=== PATIENT | male | born 1970 | race Caucasian/White ===

== ENCOUNTER → 2018-05-12 | Outpatient (CLI) | payer BC ==
--- NOTE | 2018-05-12 15:03 | MR ---
EXAMINATION TYPE: MR lumbar spine wo con DATE OF EXAM: 05/12/2018 COMPARISON: CT abdomen November 11, 2014 HISTORY: Lumbar region radiculopathy per order. Low back pain causing pain into right buttock since t he end right knee numbness for 4 months per patient. TECHNIQUE: Multiplanar, multisequence imaging of the lumbar spine is performed without IV contrast. FINDINGS: Sagittal images of the lumbar spine show vertebral body heights and alignment to appear sat isfactory. Multilevel disc desiccation is present there is mild disc space narrowing L4-L5 level. The re is mild to moderate disc space narrowing most prominent posteriorly L5-S1 level. Posterior disc he rniation L4-L5 level as seen on sagittal images.. The conus medullaris is normal in position and sig nal ending mid L1 level. The bone marrow signal intensity is within normal limits. Axial images show the T12-L1,, L1-L2, and L2-L3 levels all to appear within normal limits. Axial images at the L3-L4 level show mild broad disc bulge with more prominent focal left foraminal d isc protrusion measuring roughly 14 mm transversely by 4 mm AP diameter causing moderate inferior lef t-sided neural foraminal narrowing encroachment on foraminal/extra foraminal left L3 nerve on sagitta l image 2 and axial image 15. Axial images at L4-L5 level shows broad disc bulge with broad-based left paracentral disc protrusion effacing anterolateral thecal sac and left lateral recess on axial images 8 and 9. There is mild righ t-sided anterior inferior neural foraminal narrowing there is mild to moderate left-sided anterior in ferior neural foraminal narrowing. No definitive central nerve encroachment is seen which is posterio rly displaced in the spinal canal. Mild to moderate facet arthropathy bilaterally at this level is id entified. Axial images at L5-S1 level shows mild facet degenerative changes bilaterally. Some left-sided endpla te changes are present. Spinal canal is preserved. Bilateral neural foramina are patent. No suspicious retroperitoneal findings are seen. Paraspinal muscle bulk is maintained. IMPRESSION: Multilevel degenerative changes in lumbar spine as detailed above, attention to L3-L4 lev el where eccentric disc herniation effaces the L3 nerve likely accounting for patient's radiculopathy type symptoms. Additional fairly prominent disc herniation noted L4-L5 level as detailed above.
== END ==
LOC: RADMRIMAIN 14:15
PROVIDERS: ATTEND Family Medicine
DX: M51.16 Intervertebral disc disorders with radiculopathy, lumbar region (principal)
CPT/HCPCS: 72148

== ENCOUNTER → 2019-01-08 | Outpatient (CLI) | payer OTHER ==
--- NOTE | 2019-01-08 14:44 | XR ---
EXAM TYPE: LUMBAR SPINE X RAY SERIES COMPARISON: NONE HISTORY: Pain TECHNIQUE: 4 views are submitted. FINDINGS: Alignment is anatomic. The pedicles are intact. The transverse processes are intact. There is no s pondylolysis or spondylolisthesis. There is severe degenerative disc disease L4-L5 and L5-S1 with fa cet arthropathy. Mild hypertrophic changes noted anteriorly. IMPRESSION: 1. Severe degenerative disc disease lower lumbar spine with facet arthropathy correlate with MRI..
== END | disposition home or self-care (01) ==
LOC: RADXRMAIN 14:25
PROVIDERS: ATTEND Emergency Medicine
DX: M51.37 Other intervertebral disc degeneration, lumbosacral region (principal); M46.97 Unspecified inflammatory spondylopathy, lumbosacral region
CPT/HCPCS: 72100

== ENCOUNTER → 2019-07-09 | Outpatient (CLI) | payer OTHER ==
--- NOTE | 2019-07-10 14:02 | US ---
EXAMINATION TYPE: US thyroid st tissue head/neck DATE OF EXAM: 07/09/2019 COMPARISON: NONE CLINICAL HISTORY: E04.2 Nontoxic multinodular goiter. Patient states being on thyroid meds for years. Hypothyroidism. GLAND SIZE: Right Lobe: 4.4 x 1.9 x 2.0 cm Overall Parenchyma: heterogenous Left Lobe: 4.0 x 1.5 x 1.8 cm Overall Parenchyma: heterogeneous Isthmus Thickness: 0.2 cm NODULES RIGHT: # of nodules measured on right: 0 LEFT: # of nodules measured on left: 0 ISTHMUS: # of nodules measured in the isthmus: 0 Bilateral neck scanned, no evidence of lymphadenopathy. IMPRESSION: EXAMINATION TYPE: US thyroid st tissue head/neck DATE OF EXAM: 07/09/2019 COMPARISON: NONE CLINICAL HISTORY: E04.2 Nontoxic multinodular goiter. GLAND SIZE: Right lobe of the gland measures approximately 1.9 x 4.4 x 2 cm. Left lobe of the gland i s 1.5 x 4 x 1.8 cm. The gland shows a heterogeneous nodular appearance bilaterally. IMPRESSION: Findings suggestive of an underlying thyroiditis
== END | disposition home or self-care (01) ==
LOC: RADUSWWP 15:50
PROVIDERS: ATTEND Internal Medicine Endocrinology, Diabetes & Metabolism
DX: E04.2 Nontoxic multinodular goiter (principal)
CPT/HCPCS: 76536

== ENCOUNTER → 2019-08-18 | Outpatient (CLI) | payer BC | END | disposition home or self-care (01) | LOC: LABWHC1 08:56 | PROVIDERS: ATTEND Internal Medicine Endocrinology, Diabetes & Metabolism | DX: R53.83 Other fatigue (principal) | CPT/HCPCS: 36415; 82024; 82533; 84443 ==

== ENCOUNTER → 2024-10-21 | Outpatient (CLI) | payer BC ==
[2024-10-21 10:23] VITALS: BP 133/77; PULSE 68; RESP 16; TEMP 97.9
--- NOTE | 2024-10-21 11:11 | P.SLEEP ---
History of Present Illness DATE: 10/21/2024 CONSULTATION/NEW PATIENT EVALUATION HISTORY OF PRESENT ILLNESS/SLEEP-WAKE EVALUATION: 54-year-old gentleman had b een evaluated in the sleep center for possible obstructive sleep apnea hypopnea syndrome. SLEEP SCHEDULE: Usually sleep schedule from 911 PM to 4 AM 7 days a week. FALLING ASLEEP: No problems with falling asleep. DURING SLEEP: Patient snores, has witnessed episodes of stop breathing during the sleep by anesthesiologist during surgery and his . Patient wakes up from sleep once to use the restroom. No history of hypnogogical hallucinations, sleep paralysis, or cataplexy. DURING THE DAY/WAKE STATE: During the day patient has problems with memory and concentration. [place] sleepiness scale is 8. Usually patient does not take naps. PAST MEDICAL HISTORY: Hyperlipidemia, hypothyroidism. PAST SURGICAL HISTORY: Left shoulder surgery, right knee arthroscopic surgery, bilateral carpal tunnel syndrome surgical treatment. MEDICATIONS: Please see below. SOCIAL HISTORY: Please see below. FAMILY HISTORY: Please see below. REVIEW OF SYSTEMS: Snoring, awakenings from sleep. No fevers. No double vision. No recent chest pain. No shortness of breath. No abdominal pain. No bleeding episodes. No blood in urine. No seizure episodes. PHYSICAL EXAMINATION: GENERAL: A pleasant patient without any distress. VITAL SIGNS: Have been reviewed, please see below, weight 250 pounds, BMI 36.9. HEENT: PERRLA, EOMI. Evaluation of oropharynx showed tongue protrudes midline, low position of soft palate Mallampati 4. NECK: Supple. No JVD. Thyroid is not palpable. 18.5 inches in circumference. LUNGS: Clear to percussion and to auscultation. Good air exchange. No wheezing or rhonchi. HEART: S1, S2 regular. No murmurs, gallops or rubs. ABDOMEN: Soft and nontender. Bowel sounds are present. No organomegaly appreciated. EXTREMITIES: No clubbing or cyanosis. TRUST VAULT CLERK: Awake, alert, and oriented x3. Cranial nerves 2 to 7 intact. There is no fasciculation or atrophy noted. No focal deficits observed. ASSESSMENT: 1. Snoring, witnessed episodes of stop breathing during the sleep, extremely low position of soft palate Mallampati 4, wide neck 18.5 inches in circumference. Obstructive sleep apnea hypopnea syndrome. 2. Obesity, BMI 36.9. 3. Hyperlipidemia. 4. Hypothyroidism. 5 status post back surgery. 6 . Status post left shoulder surgery. 7. Status post right knee arthroscopic surgery. 8. Status post surgery for treatment of carpal tunnel syndrome bilaterally. PLAN: 1. Home sleep apnea test for evaluation of patient's breathing during sleep. 2. Plan after reading sleep study. 3. Preferable position during sleep on the side. 4. No driving if patient feels any sleepiness. Patient is aware of civil and criminal liability for unsafe driving. 5. Sleep hygiene with regular sleep time for at least 7.5-8 hours. 6. Watching and losing weight. Thank you very much for referring this patient for consultation. Sincerely, Reji Powell MD, PhD, FAASM. Diplomat of [employer], Sleep Medicine Board by [employer] Manager [employer] [facility] [place] cc: Toan Poole DO Past Medical History Past Medical History: Asthma, Hyperlipidemia, Thyroid Disorder History of Any Multi-Drug Resistant Organisms: None Reported Past Surgical History: Orthopedic Surgery Past Psychological History: No Psychological Hx Reported Smoking Status: Never smoker Past Alcohol Use History: None Reported, Occasional Past Drug Use History: None Reported - Past Family History Father Family Medical History: Cancer, Hyperlipidemia, Liver Disease, Osteoarthritis (OA) Additional Family Medical History / Comment(s): Lung CA Mother Family Medical History: Asthma, Osteoarthritis (OA) Additional Family Medical History / Comment(s): Lung problems Medications and Allergies Home Medications Medication Instructions Recorded Confirmed Type Levothyroxine Sodium [Synthroid] 175 mcg PO DAILY 11/12/14 10/21/24 History predniSONE [Deltasone] 40 mg PO DAILY #4 tab NS 11/12/14 Rx Atorvastatin [Lipitor] 10 mg PO DAILY 10/21/24 10/21/24 History Allergies Allergy/AdvReac Type Severity Reaction Status Date / Time ct dye AdvReac Rash/Hives Uncoded 11/12/14 08:12 Physical Exam Vitals: Vital Signs Temp Pulse Resp BP Pulse Ox 10/21/24 10:22 97.9 F 68 16 133/77 96 Intake and Output 10/20/24 10/21/24 10/21/24 22:59 06:59 14:59 Other: Weight 113.398 kg Sleep Note - Sleep Data ESS Total: 8 - Sleep Note Sleep Note: Temperature: 97.9 F Pulse Rate: 68 Respiratory Rate: 16 Blood Pressure: 133/77 SpO2: 96 Height: 5 ft 9 in Weight: 113.398 kg BMI: Neck Circumference: 18.5
== END ==
LOC: 3 N SLEEP 10:09
PROVIDERS: ATTEND Internal Medicine
DX: R06.83 Snoring (principal); G47.33 Obstructive sleep apnea (adult) (pediatric); E66.9 Obesity, unspecified; Z68.36 Body mass index [BMI] 36.0-36.9, adult; E78.5 Hyperlipidemia, unspecified; E03.9 Hypothyroidism, unspecified; Z98.890 Other specified postprocedural states; Z91.041 Radiographic dye allergy status
CPT/HCPCS: 99211

== ENCOUNTER → 2025-01-19 | Outpatient (CLI) | payer BC ==
[2025-01-19 11:13] VITALS: BP 119/79; PULSE 62; RESP 18; TEMP 98
--- NOTE | 2025-01-19 11:41 | P.PROGSL ---
Subjective DATE: 01/19/2025 FOLLOW UP VISIT. Patient with obstructive sleep apnea hypopnea syndrome return to sleep center for follow-up visit. Recently patient had sleep study which documented obstructive sleep apnea hypopnea syndrome. Patient was initiated on PAP therapy and today is first visit after treatment was started. I explained to the patient results of sleep study in details. Patient was able to use PAP equipment every night for the whole night. Patient was not able to use machine for several nights secondary to sinuses problems. Also his machine fell and then was replaced. The patient does not have significant problems with the mask, PAP pressure and humidification. [place] sleepiness scale is 6, which is normal. I checked information from PAP unit. PAP unit pressure 5-12 cm H2O. Usage is 80% and 63% for more then 4 hours, average 5 hours per night. Leak is 8.8 l/m, which is in acceptable range. Apnea Hypopnea Index is 2.3, which is normal. MEDICATIONS: Please see below During physical exam: GENERAL: A pleasant patient without any distress. VITAL SIGNS: Please see below, weight 254.6 pounds. HEENT: PERRLA, EOMI.low position of soft palate, Mallapati 4 . NECK: Supple. No JVD. LUNGS: Clear to percussion and to auscultation. Good air exchange. No wheezing or rhonchi. HEART: S1, S2 regular. ABDOMEN: Soft and nontender.[] EXTREMITIES: No clubbing or cyanosis. CLIENT REPRESENTATIVE: Awake, alert, and oriented x3. No focal deficit. Impressions: 1. Obstructive sleep apnea-hypopnea syndrome. Patient demonstrated slightly low compliance with treatment, benefiting from treatment. 2. Obesity. 3. Hypothyroidism. 4. Hyperlipidemia. 5. Status post back surgery. 6. Status post left shoulder surgery. 7. Status post right knee arthroscopic surgery. 8. Status post bilateral surgical treatment for carpal tunnel syndrome. Plan: 1. Continue using PAP equipment every night for the whole night. We will renew trial period for another 90 days. 2. To change air filter at least 1-2 times per month. 3. PAP unit should stay lower then position of the head. 4. Advised patient to remove all remaining water from humidifier canister daily and make it dry after each usage. Refill canister with fresh distilled water before each usage. 5. Sleep hygiene with regular time in bed for at least 8 hours. 6. Precautions related to driving. No driving if feel any sleepiness. 7. I will maintain prescription for PAP supplies including mask, tube, filters. 8. Follow up visit in 2.5 months or earlier if patient has any problems. 9. Watching and losing weight. Thank you very much for allowing me to participate in the management of your patient. Reji Powell MD, PhD, FAASM. Diplomat of [place] [employer], Sleep Medicine Board by [employer] Staff Anesthetist of [facility] [place] Objective - Vital Signs Vital Signs: Vital Signs Temp 98.0 F 01/19/25 11:10 Pulse 62 01/19/25 11:10 Resp 18 01/19/25 11:10 BP 119/79 01/19/25 11:10 Pulse Ox 97 01/19/25 11:10 FiO2 Intake & Output 01/18/25 01/19/25 01/19/25 18:59 06:59 18:59 Weight 115.383 kg Home Medications: Home Medications Medication Instructions Recorded Confirmed Type Levothyroxine Sodium [Synthroid] 175 mcg PO DAILY 11/12/14 10/21/24 History predniSONE [Deltasone] 40 mg PO DAILY #4 tab NS 11/12/14 Rx Atorvastatin [Lipitor] 10 mg PO DAILY 10/21/24 10/21/24 History
== END ==
LOC: 3 N SLEEP 10:51
PROVIDERS: ATTEND Internal Medicine
DX: G47.33 Obstructive sleep apnea (adult) (pediatric) (principal); E66.9 Obesity, unspecified; E03.9 Hypothyroidism, unspecified; E78.5 Hyperlipidemia, unspecified; Z96.612 Presence of left artificial shoulder joint; Z96.651 Presence of right artificial knee joint; Z98.890 Other specified postprocedural states; Z91.041 Radiographic dye allergy status; Z99.89 Dependence on other enabling machines and devices
CPT/HCPCS: 99212

== ENCOUNTER → 2025-03-30 | Outpatient (CLI) | payer BC ==
[2025-03-30 15:16] VITALS: BP 117/67; PULSE 72; RESP 16; TEMP 98.1
--- NOTE | 2025-03-30 16:27 | P.PROGSL ---
Subjective DATE: 03/30/2025 FOLLOW UP VISIT. Patient with obstructive sleep apnea hypopnea syndrome return to sleep center for follow-up visit. Information from previous visit have been reviewed. Patient is using PAP equipment every night for the whole night, getting PAP supplies in time. The patient does not have significant problems with the mask, PAP unit and humidification. [place] sleepiness scale is slightly increased to 12. I checked information from PAP unit. PAP unit pressure 5-12, average 9.4 cm H2O. Usage is 93% and 70% for more then 4 hours, average 4.75 hours per night. Leak is 5.9 l/m, which is in acceptable range. Apnea Hypopnea Index is 0.8, which is normal. MEDICATIONS have been reviewed, please see below. During physical exam: GENERAL: A pleasant patient without any distress. No chest pain, no shortness of breath. VITAL SIGNS: Please see below, weight is 250 lbs. HEENT: PERRLA, EOMI.low position of soft palate, Mallapati 4 . NECK: Supple. No JVD. LUNGS: Clear to percussion and to auscultation. Good air exchange. No wheezing or rhonchi. HEART: S1, S2 irregular, bigeminy. ABDOMEN: Soft and nontender.[] EXTREMITIES: No clubbing or cyanosis. SHIP CLEANER: Awake, alert, and oriented x3. No focal deficit. Impressions: 1. Obstructive sleep apnea-hypopnea syndrome. Patient demonstrated great compliance with treatment, benefiting from treatment. 2. Obesity, BMI 36.9, patient lost 4 pounds comparing with previous visit. 3. Bigeminy by auscultation. 4. Hypothyroidism. 5. Hyperlipidemia. 6. Status post back surgery. 7. Status post bilateral surgical treatment for carpal tunnel syndrome. 8. Status post left shoulder surgery. 9. Status post right knee arthroscopic surgery. Plan: 1. Continue using PAP equipment every night for the whole night. 2. Sleep hygiene with regular time in bed for at least 7.5-8 hours 3. PAP unit should stay lower then position of the head. 4. Referral to Dr. Harjit Purdy for cardiac evaluation. 5. Watching and losing weight. 6. Precautions related to driving. No driving if feel any sleepiness. 7. I will maintain prescription for PAP supplies including mask, tube, filters. 8. Follow up visit in 6 months or earlier if patient has any problems. Thank you very much for allowing me to participate in the management of your patient. Reji Powell MD, PhD, FAASM. Diplomat of [place] [employer], Sleep Medicine Board by [place] [employer] [facility] [place] cc: Toan Poole DO Objective - Vital Signs Vital Signs: Vital Signs Temp 98.1 F 03/30/25 15:15 Pulse 72 03/30/25 15:15 Resp 16 03/30/25 15:15 BP 117/67 03/30/25 15:15 Pulse Ox 97 03/30/25 15:15 FiO2 Intake & Output 03/29/25 03/30/25 03/30/25 18:59 06:59 18:59 Weight 113.398 kg Home Medications: Home Medications Medication Instructions Recorded Confirmed Type Levothyroxine Sodium [Synthroid] 175 mcg PO DAILY 11/12/14 03/30/25 History predniSONE [Deltasone] 40 mg PO DAILY #4 tab NS 11/12/14 Rx Atorvastatin [Lipitor] 10 mg PO DAILY 10/21/24 03/30/25 History
== END ==
LOC: 3 N SLEEP 14:50
PROVIDERS: ATTEND Internal Medicine
DX: G47.33 Obstructive sleep apnea (adult) (pediatric) (principal); E66.9 Obesity, unspecified; E03.9 Hypothyroidism, unspecified; E78.5 Hyperlipidemia, unspecified; Z68.36 Body mass index [BMI] 36.0-36.9, adult; Z96.612 Presence of left artificial shoulder joint; Z96.651 Presence of right artificial knee joint; Z98.890 Other specified postprocedural states; Z99.89 Dependence on other enabling machines and devices; Z91.041 Radiographic dye allergy status
CPT/HCPCS: 99212

== ENCOUNTER → 2025-04-21 | Outpatient (CLI) | payer BC ==
--- NOTE | 2025-04-21 16:37 | US ---
EXAMINATION TYPE: US kidneys/renal and bladder DATE OF EXAM: 04/21/2025 COMPARISON: CT 2014 CLINICAL INDICATION: Male, 54 years old with history of N18.30 CHRONIC KIDNEY DISEASE, STAGE 3 UNSPEC IFIED; CKD Stage 3 TECHNIQUE: Grayscale imaging of the bilateral kidneys and urinary bladder: FINDINGS: EXAM MEASUREMENTS: Right Kidney: 11.1 x 5.7 x 4.3 cm Left Kidney: 10.7 x 5.9 x 5.6 cm Right Kidney: No hydronephrosis or masses seen Left Kidney: No hydronephrosis or masses seen Bladder: Appears anechoic. Bilateral Jets seen: Yes IMPRESSION: Unremarkable study [facility] Neela Munoz, , 04/21/2025 4:34 PM
== END | disposition home or self-care (01) ==
LOC: RADUSWWP 16:13
PROVIDERS: ATTEND Family Medicine
DX: N18.30 Chronic kidney disease, stage 3 unspecified (principal)
CPT/HCPCS: 76770